=== PATIENT | male | born 1980 | race Caucasian/White ===

== ENCOUNTER 2018-01-28 20:44 | Emergency (ER) | payer SELFPAY ==
[~2018-01-28] VITALS: Ht 180.3 cm; Wt 104.5 kg
[2018-01-28 20:52] VITALS: Ht 180.3 cm; Wt 104.5 kg
[2018-01-28] MEDS ORDERED: [UNRECOGNIZED DRUG - REMARK] (20:57)
[2018-01-28] MEDS ORDERED: NORCO 10-325 TA1 TAB PO (22:53)
[2018-01-28] MEDS ORDERED: CLEOCIN HCL300 MG PO (22:53)
[2018-01-28] MEDS ORDERED: KEFLEX500 MG PO (22:53)
[2018-01-29 00:05] VITALS: BP 113/77
== END 2018-01-29 00:07 | disposition home or self-care (01) ==
LOC: D.ER 20:44
DX: L03.114 Cellulitis of left upper limb (principal)

== ENCOUNTER 2018-01-31 21:57 | Emergency (ER) | payer SELFPAY ==
[2018-01-28 20:52] VITALS: BMI 32.1
[~2018-01-31 21:57] MED LIST: CLEOCIN HCL300 MG PO; KEFLEX500 MG PO; NORCO 10-325 TA1 TAB PO; [UNRECOGNIZED DRUG - REMARK]
== END 2018-01-31 22:42 | disposition left against medical advice (07) ==
LOC: D.ER 21:57
DX: M79.643 Pain in unspecified hand (principal)

== ENCOUNTER 2018-01-31 23:31 | Emergency (ER) | payer SELFPAY ==
[~2018-01-31] VITALS: Ht 180.3 cm; Wt 104.3 kg
[2018-01-31 23:33] VITALS: Ht 180.3 cm; Wt 104.3 kg
[2018-02-01 02:40] VITALS: BP 158/97
== END 2018-02-01 02:40 | disposition home or self-care (01) ==
LOC: D.ER 23:31
DX: L03.114 Cellulitis of left upper limb (principal); F17.200 Nicotine dependence, unspecified, uncomplicated

== ENCOUNTER 2018-02-23 16:23 | Emergency (ER) | payer SELFPAY ==
[~2018-02-23] VITALS: Ht 180.3 cm; Wt 104.5 kg
[2018-02-23 16:32] VITALS: BP 149/93; Ht 180.3 cm; Wt 104.5 kg
== END 2018-02-23 19:00 | disposition left against medical advice (07) ==
LOC: D.ER 16:23
DX: S00.33XA Contusion of nose, initial encounter (principal); Y04.2XXA Assault by strike against or bumped into by another person, initial encounter; Y93.89 Activity, other specified; Y92.89 Other specified places as the place of occurrence of the external cause; F17.200 Nicotine dependence, unspecified, uncomplicated

== ENCOUNTER 2018-02-23 22:00 | Emergency (ER) | payer SELFPAY ==
[~2018-02-23] VITALS: Ht 180.3 cm; Wt 104.3 kg
[2018-02-23 22:14] VITALS: Ht 180.3 cm; Wt 104.3 kg
[2018-02-24 01:34] VITALS: BP 116/60
== END 2018-02-24 01:38 | disposition home or self-care (01) ==
LOC: D.ER 22:00
DX: S02.2XXA Fracture of nasal bones, initial encounter for closed fracture (principal); Y04.2XXA Assault by strike against or bumped into by another person, initial encounter; Y93.89 Activity, other specified; Y92.89 Other specified places as the place of occurrence of the external cause; F17.200 Nicotine dependence, unspecified, uncomplicated